=== PATIENT | female | born 1955 | race Caucasian/White ===

== ENCOUNTER 2024-02-23 08:18 | Day surgery (SDC) | payer OTHER, MEDICARE ==
[2024-02-20 15:45] VITALS: BMI 25.2
[2024-02-23 08:48] VITALS: RESP 18; TEMP 97.9
[2024-02-23 10:07] VITALS: BP 108/60; PULSE 74
== END 2024-02-23 10:10 | disposition home or self-care (01) ==
LOC: FASU-ENDO 08:18
PROVIDERS: ATTEND Internal Medicine Gastroenterology
PROC: 0DBN8ZX Excision of Sigmoid Colon, Via Natural or Artificial Opening Endoscopic, Diagnostic (ICD-10-PCS; principal; 2024-02-23 09:13)
DX: Z12.11 Encounter for screening for malignant neoplasm of colon (principal); K63.5 Polyp of colon; K57.30 Diverticulosis of large intestine without perforation or abscess without bleeding; Z86.010 Personal history of colon polyps
CPT/HCPCS: 88305-TC